=== PATIENT | female | born 1995 | race African-American/Black ===

== ENCOUNTER 2019-05-08 13:57 | Emergency (ER) | payer MEDICAID ==
[~2019-05-08] VITALS: Ht 170.2 cm; Wt 110.0 kg
[2019-05-08 17:17] VITALS: BP 128/87
== END 2019-05-08 17:20 | disposition home or self-care (01) ==
LOC: ER 13:57
DX: S43.102A Unspecified dislocation of left acromioclavicular joint, initial encounter (principal); S39.012A Strain of muscle, fascia and tendon of lower back, initial encounter; M60.9 Myositis, unspecified; V43.52XA Car driver injured in collision with other type car in traffic accident, initial encounter; W22.11XA Striking against or struck by driver side automobile airbag, initial encounter; Y93.89 Activity, other specified; Y92.488 Other paved roadways as the place of occurrence of the external cause
CPT/HCPCS: 73030; 81025; 99283

== ENCOUNTER 2021-12-27 07:34 | Emergency (ER) | payer MEDICAID, OTHER ==
[~2021-12-27] VITALS: Ht 170.2 cm; Wt 96.0 kg
[2021-12-27 07:37] VITALS: BP 130/81
[2021-12-27] MEDS ORDERED: LIDOCAINE HCL 1% 20ML VIAL (Pyxis) INJ INFIL ONE (12:45)
[2021-12-27] MEDS ORDERED: IMIT25 MT (15:01)
[2021-12-27] MEDS ORDERED: TRAM-529 MT (15:05)
== END 2021-12-27 15:34 | disposition home or self-care (01) ==
LOC: ER 07:34
DX: G43.909 Migraine, unspecified, not intractable, without status migrainosus (principal)
CPT/HCPCS: 99284